=== PATIENT | female | born 1990 ===

== ENCOUNTER 2021-04-25 10:25 | Outpatient (CLI) | payer OTHER | END 2021-04-25 11:15 | disposition home or self-care (01) | LOC: PRENATAL 10:25 | PROVIDERS: ATTEND Obstetrics & Gynecology Maternal & Fetal Medicine | DX: O26.849 Uterine size-date discrepancy, unspecified trimester (principal); O36.80X0 Pregnancy with inconclusive fetal viability, not applicable or unspecified; O99.891 Other specified diseases and conditions complicating pregnancy ==

== ENCOUNTER 2021-06-06 14:19 | Outpatient (CLI) | payer OTHER | END 2021-06-06 15:30 | disposition home or self-care (01) | LOC: PRENATAL 14:19 | PROVIDERS: ATTEND Obstetrics & Gynecology Maternal & Fetal Medicine | DX: O35.0XX0 Maternal care for (suspected) central nervous system malformation in fetus, not applicable or unspecified (principal); O35.3XX0 Maternal care for (suspected) damage to fetus from viral disease in mother, not applicable or unspecified; O34.219 Maternal care for unspecified type scar from previous cesarean delivery; Z3A.20 20 weeks gestation of pregnancy ==

== ENCOUNTER 2021-09-12 13:27 | Outpatient (CLI) | payer OTHER | END 2021-09-12 17:51 | disposition home or self-care (01) | LOC: OBS/DEL 13:27 | PROVIDERS: ATTEND Student in an Organized Health Care Education/Training Program | DX: O99.013 Anemia complicating pregnancy, third trimester (principal); Z3A.34 34 weeks gestation of pregnancy; R10.2 Pelvic and perineal pain ==

== ENCOUNTER 2021-09-19 15:24 | Outpatient (CLI) | payer OTHER | END 2021-09-19 17:10 | disposition home or self-care (01) | LOC: PRENATAL 15:24 | PROVIDERS: ATTEND Obstetrics & Gynecology Maternal & Fetal Medicine | DX: O26.849 Uterine size-date discrepancy, unspecified trimester (principal); O36.8199 Decreased fetal movements, unspecified trimester, other fetus; Z3A.35 35 weeks gestation of pregnancy ==

== ENCOUNTER 2021-10-05 12:14 | Inpatient (IN) | payer OTHER ==
[~2021-10-05] VITALS: Ht 165.1 cm; Wt 81.2 kg
[2021-10-07] MEDS ORDERED: FUSION PLUS CA1 EACH PO (09:41)
[2021-10-07] MEDS ORDERED: IBU800 MG PO (09:41)
[2021-10-07] MEDS ORDERED: COLACE100 MG PO (09:42)
[2021-10-07] MEDS ORDERED: SIMETHICONE125 M1 PO (09:42)
== END 2021-10-07 14:35 | disposition home or self-care (01) | DRG 784 ==
LOC: LDR 12:14 → OB/GYN 18:48
PROVIDERS: ADMIT Obstetrics & Gynecology; ATTEND Obstetrics & Gynecology
PROC: 0UB70ZZ Excision of Bilateral Fallopian Tubes, Open Approach (ICD-10-PCS; 2021-10-05)
PROC: 4A1HXCZ Monitoring of Products of Conception, Cardiac Rate, External Approach (ICD-10-PCS; 2021-10-05)
PROC: 10D00Z1 Extraction of Products of Conception, Low, Open Approach (ICD-10-PCS; principal; 2021-10-05 15:00)
DX: O33.8 Maternal care for disproportion of other origin (principal); O41.03X0 Oligohydramnios, third trimester, not applicable or unspecified; O34.211 Maternal care for low transverse scar from previous cesarean delivery; Z3A.37 37 weeks gestation of pregnancy; Z37.0 Single live birth; Z30.2 Encounter for sterilization; Z20.822 Contact with and (suspected) exposure to COVID-19